=== PATIENT | female | born 1995 | race Caucasian/White ===

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

== ENCOUNTER 2017-07-04 20:11 | Emergency (ER) | payer SELFPAY ==
[2017-07-04 20:11] VITALS: BMI 44.2
[2017-07-04 20:22] VITALS: RESP 18; TEMP 98.2
[2017-07-04] MEDS ORDERED: cefTRIAXone (Rocephin) 250 mg Inj IM STA (20:24)
[2017-07-04 21:00] LABS: URINE BILIRUBIN NEGATIVE (NEGATIVE); URINE BLOOD NEGATIVE (NEGATIVE); URINE GLUCOSE (UA) NEGATIVE (NEGATIVE); URINE LEUKOCYTE ESTERASE NEGATIVE Leu/uL (NEGATIVE); URINE PROTEIN NEGATIVE mg/dL (<30 mg/dL); URINE UROBILINOGEN 0.2 E.U./dL (<1 E.U./dL)
[2017-07-04 21:01] LABS: URINE COLOR YELLOW (YELLOW)
[2017-07-04 21:02] LABS: URINE APPEARANCE CLEAR (CLEAR)
--- NOTE | 2017-07-04 21:35 | ED PDOC ---
Arrival/HPI - General Chief Complaint: Female Genitourinary Time Seen by Provider: 07/04/17 20:23 Historian: Patient - History of Present Illness Narrative History of Present Illness (Text): 07/04/17 21:29 21yo female who present to ED requesting a test for STD. States she had unprotected sex a month ago and had odorous brownish discharge afterwards. Notes that the discharge resolved few days ago. She came to ED today because is worried. Reports suprapubic abdominal pain. Denies dysuria, back pain, urinary frequency, fever, chills, back pain, nasuea, vomiting, any other complaint. Past Medical History - Provider Review Nursing Documentation Reviewed: Yes - Past History Past History: No Previous - Infectious Disease Hx of Infectious Diseases: None - Tetanus Immunization Tetanus Immunization: Unknown - Reproductive Menopause: No - Cardiac Hx Cardiac Disorders: Yes - Pulmonary Hx Respiratory Disorders: No - Neurological Hx Neurological Disorder: Yes (Migraine.) Hx Migraine: Yes - HEENT Hx HEENT Disorder: No - Renal Hx Renal Disorder: No - Endocrine/Metabolic Hx Endocrine Disorders: No - Hematological/Oncological Hx Blood Disorders: No - Integumentary Hx Dermatological Disorder: Yes Hx Eczema: Yes - Musculoskeletal/Rheumatological Hx Musculoskeletal Disorders: No - Gastrointestinal Hx Gastrointestinal Disorders: Yes (Chronic constipation (tried many things without help).) - Genitourinary/Gynecological Hx Genitourinary Disorders: No - Psychiatric Hx Psychophysiologic Disorder: Yes Hx Depression: Yes Hx Emotional Abuse: No Hx Physical Abuse: No Hx Substance Use: No - Past Surgical History Past Surgical History: No Previous - Anesthesia Hx Anesthesia: No - Suicidal Assessment Feels Threatened In Home Enviroment: No Family/Social History - Physician Review Nursing Documentation Reviewed: Yes Family/Social History: Unknown Family HX Smoking Status: Never Smoked Hx Alcohol Use: No Hx Substance Use: No Hx Substance Use Treatment: No Allergies/Home Meds Allergies/Adverse Reactions: Allergies No Known Allergies Allergy (Verified 10/19/16 16:54) Home Medications: Home Meds Medication Instructions Recorded Confirmed No Known Home Med 07/04/17 07/04/17 Review of Systems - Physician Review All systems were reviewed & negative as marked: Yes - Review of Systems Constitutional: Normal Eyes: Normal ENT: Normal Respiratory: Normal Cardiovascular: Normal Gastrointestinal: Normal Genitourinary Female: Vaginal Discharge. absent: Dysuria, Frequency Musculoskeletal: Normal Skin: Normal Neurological: Normal Endocrine: Normal Hemo/Lymphatic: Normal Psychiatric: Normal Physical Exam Vital Signs Reviewed: Yes Vital Signs Temp Pulse Resp BP Pulse Ox 07/04/17 20:18 98.2 F 96 H 18 115/76 99 Temperature: Afebrile Blood Pressure: Normal Pulse: Regular Respiratory Rate: Normal Appearance: Positive for: Well-Appearing, Non-Toxic, Comfortable Pain Distress: None Mental Status: Positive for: Alert and Oriented X 3 - Systems Exam Head: Present: Atraumatic, Normocephalic Pupils: Present: PERRL Extroacular Muscles: Present: EOMI Conjunctiva: Present: Normal Mouth: Present: Moist Mucous Membranes Neck: Present: Normal Range of Motion Respiratory/Chest: Present: Clear to Auscultation, Good Air Exchange. No: Respiratory Distress, Accessory Muscle Use Cardiovascular: Present: Regular Rate and Rhythm, Normal S1, S2. No: Murmurs Abdomen: No: Tenderness, Distention, Peritoneal Signs, Rebound, Guarding, McBurney's Point Tender, Rovsing's Sign Present Back: Present: Normal Inspection. No: CVA Tenderness Upper Extremity: Present: Normal Inspection. No: Cyanosis, Edema Lower Extremity: Present: Normal Inspection. No: Edema Neurological: Present: GCS=15, CN II-XII Intact, Speech Normal Skin: Present: Warm, Dry, Normal Color. No: Rashes Psychiatric: Present: Alert, Oriented x 3, Normal Insight, Normal Concentration Medical Decision Making - Lab Interpretations Lab Results: Lab Results 07/04/17 20:35: Urine Color Yellow, Urine Appearance Clear, Urine pH 8.0, Ur Specific [place] 1.015, Urine Protein Negative, Urine Glucose (UA) Negative, Urine Ketones Negative, Urine Blood Negative, Urine Nitrate Negative, Urine Bilirubin Negative, Urine Urobilinogen 0.2, Ur Leukocyte Esterase Negative - Medication Orders Current Medication Orders: Discontinued Medications Azithromycin (Zithromax) 1,000 mg PO STAT STA PRN Reason: Protocol Stop: 07/04/17 20:25 Ceftriaxone Sodium (Rocephin) 250 mg IM STAT STA PRN Reason: Protocol Stop: 07/04/17 20:25 Disposition/Present on Arrival - Present on Arrival Any Indicators Present on Arrival: No History of DVT/PE: No History of Uncontrolled Diabetes: No Urinary Catheter: No History of Decub. Ulcer: No History Surgical Site Infection Following: None - Disposition Have Diagnosis and Disposition been Completed?: Yes Diagnosis: Venereal disease Disposition: HOME/ ROUTINE Disposition Time: 21:40 Patient Plan: Discharge Condition: STABLE Discharge Instructions (ExitCare): Sexually-Transmitted Diseases, STD Prevention Additional Instructions: Follow up with medical record in 3days for result Return to ED for any new symptoms Referrals: Juan Garza MD [Primary Care Provider] - Follow up with primary
[2017-07-04 23:27] VITALS: BP 112/78; PULSE 85; O2SAT 100
== END 2017-07-04 22:00 | disposition home or self-care (01) ==
LOC: ED 20:11
DX: A64 Unspecified sexually transmitted disease (principal)
CPT/HCPCS: 81003; 87491; 87591; 96372; 99282; J0696

== ENCOUNTER 2017-08-01 15:37 | Emergency (ER) | payer SELFPAY ==
[2017-08-01 16:15] VITALS: BMI 41.1
[2017-08-01 17:08] LABS: PH,URINE 7.5 (4.7-8.0); URINE BILIRUBIN NEGATIVE (NEGATIVE); URINE BLOOD MODERATE (NEGATIVE); URINE GLUCOSE (UA) NEGATIVE (NEGATIVE); URINE LEUKOCYTE ESTERASE LARGE Leu/uL (NEGATIVE); URINE PROTEIN 30 mg/dL (<30 mg/dL); URINE UROBILINOGEN 0.2 E.U./dL (<1 E.U./dL)
[2017-08-01 17:09] LABS: URINE APPEARANCE CLEAR (CLEAR); URINE COLOR LIGHT YELLOW (YELLOW)
[2017-08-01 17:18] LABS: URINE BACTERIA TRACE (NEG); URINE EPITHELIAL CELLS 0 - 2 /hpf (0-5); URINE WBC 20 - 25 /hpf (0-6)
--- NOTE | 2017-08-01 17:27 | ED PDOC ---
Arrival/HPI - General Chief Complaint: Abdominal Pain Time Seen by Provider: 08/01/17 15:49 - History of Present Illness Narrative History of Present Illness (Text): 08/01/17 17:21 Pt is a 21 yo F presents to Emergency department due dysuria and pelvic pain for >1 month. Patient states that initially there was discharge and foul odor in her urine during the first 1-2 weeks of pain. Patients states that pelvic pain is right sided and radiates to her back. Pain is constant. Patient states that she is sexually active with one partner. Patient states that partner does not have any symptoms. Patient denies urinary frequency, fever, chills, nausea, vomiting, abdominal pain, headache, or dizziness. Of note patient was evaluated in the Emergency department about 1 month ago and underwent test which showed negative for gonorrhea and chlamydia and negative UA. (Dipesh Arredondo) Past Medical History - Past History Past History: No Previous - Infectious Disease Hx of Infectious Diseases: None - Tetanus Immunization Tetanus Immunization: Unknown - Reproductive Menopause: No - Cardiac Hx Cardiac Disorders: Yes - Pulmonary Hx Respiratory Disorders: No - Neurological Hx Neurological Disorder: Yes (Migraine.) Hx Migraine: Yes - HEENT Hx HEENT Disorder: No - Renal Hx Renal Disorder: No - Endocrine/Metabolic Hx Endocrine Disorders: No - Hematological/Oncological Hx Blood Disorders: No - Integumentary Hx Dermatological Disorder: Yes Hx Eczema: Yes - Musculoskeletal/Rheumatological Hx Musculoskeletal Disorders: No - Gastrointestinal Hx Gastrointestinal Disorders: Yes (Chronic constipation (tried many things without help).) - Genitourinary/Gynecological Hx Genitourinary Disorders: No - Psychiatric Hx Psychophysiologic Disorder: Yes Hx Depression: Yes Hx Emotional Abuse: No Hx Physical Abuse: No Hx Substance Use: No - Past Surgical History Past Surgical History: No Previous - Anesthesia Hx Anesthesia: No - Suicidal Assessment Feels Threatened In Home Enviroment: No Family/Social History Family/Social History: No Known Family HX Smoking Status: Never Smoked Hx Alcohol Use: No Hx Substance Use: No Hx Substance Use Treatment: No Allergies/Home Meds Allergies/Adverse Reactions: Allergies No Known Allergies Allergy (Verified 08/01/17 16:14) Review of Systems - Physician Review All systems were reviewed & negative as marked: Yes (12 point ROS reviewed and is negative other than what is stated in HPI.) Physical Exam Vital Signs Reviewed: Yes Temperature: Afebrile Blood Pressure: Normal Pulse: Regular Respiratory Rate: Normal Appearance: Positive for: Well-Appearing, Non-Toxic Pain Distress: Moderate Mental Status: Positive for: Alert and Oriented X 3 - Systems Exam Head: Present: Atraumatic, Normocephalic Pupils: Present: PERRL Extroacular Muscles: Present: EOMI Conjunctiva: Present: Normal Mouth: Present: Moist Mucous Membranes Neck: Present: Normal Range of Motion Respiratory/Chest: Present: Clear to Auscultation. No: Wheezes, Rales, Rhonchi Cardiovascular: Present: Regular Rate and Rhythm, Normal S1, S2. No: Murmurs, Rub, Gallop Abdomen: Present: Tenderness (RLQ). No: Distention, Peritoneal Signs, Rebound, Guarding Upper Extremity: Present: Normal Inspection Lower Extremity: Present: Normal Inspection Neurological: Present: GCS=15, CN II-XII Intact, Speech Normal Skin: Present: Warm, Dry, Normal Color. No: Rashes Psychiatric: Present: Alert, Oriented x 3, Normal Insight, Normal Concentration Vital Signs Temp Pulse Resp BP Pulse Ox 08/01/17 21:46 98.8 F 88 18 132/78 97 08/01/17 16:55 98 F 75 19 128/72 99 08/01/17 16:07 98.6 F 89 20 126/77 99 Medical Decision Making ED Course and Treatment: 08/01/17 17:28 21 yo F with right pelvic pain and dysuria. Plan: - Urinalysis - POC - Transvaginal US - Reassess and disposition 08/01/17 19:41 Transvaginal ultrasound reviewed by vrad radiologist shows no acute findings. 08/01/17 21:24 Abdominal/pelvis ultrasound reviewed by ad radiologist IMPRESSION: 1. No definite CT evidence of urolithiasis. 2. Pulmonary nodules. For low-risk patients, no follow-up is necessary. For high -risk patients (smoking history or other known risk factors) an optional CT at 12 months could be performed. Results were discussed with the patient. Patient will be given rx keflex for UTI. Patient was also advised to follow up with [facility] on discharge for routine monitoring due to pulmonary nodules found on CT. (Dipesh Arredondo) 08/01/17 22:22 patient was informed of the incidental CT finding of pulm nodules and was informed to follow up with pulmonary/pcp for further workup/evaluation. abx as per patient request of insurance lapse. patient ok with abx choice and speculated chakraborty. (Gonzalez Farmer) - Lab Interpretations Lab Results: Lab Results 08/01/17 16:25: Urine Color Light yellow, Urine Appearance Clear, Urine pH 7.5, Ur Specific [place] 1.015, Urine Protein 30 H, Urine Glucose (UA) Negative, Urine Ketones Negative, Urine Blood Moderate H, Urine Nitrate Negative, Urine Bilirubin Negative, Urine Urobilinogen 0.2, Ur Leukocyte Esterase Large H, Urine RBC 1 - 3, Urine WBC 20 - 25, Ur Epithelial Cells 0 - 2, Urine Bacteria Trace - RAD Interpretation Radiology Orders: 08/01/17 17:11 TRANSVAGINAL [US] Stat 08/01/17 19:53 ABD & PELVIS W/O PO OR IV CONT [CT] Stat Disposition/Present on Arrival - Present on Arrival Any Indicators Present on Arrival: No History of DVT/PE: No History of Uncontrolled Diabetes: No Urinary Catheter: No History of Decub. Ulcer: No History Surgical Site Infection Following: None - Disposition Have Diagnosis and Disposition been Completed?: Yes Disposition Time: 22:16 Patient Plan: Discharge - Disposition Diagnosis: UTI (urinary tract infection), Pulmonary nodule Disposition: HOME/ ROUTINE Patient Problems: Current Active Problems Problem Status Onset UTI (urinary tract infection) Acute Pulmonary nodule Acute Condition: STABLE Discharge Instructions (ExitCare): Urinary Tract Infection, Adult (DC), Pulmonary Nodule Additional Instructions: 1. Complete 5 day course of antibiotics 2. Follow up with PMD upon completion of antibiotics 3. Follow up with PMD for [facility] referral due to pulmonary nodule findings 3. If symptoms worsen, please return to Emergency department. Including worsening blood in urine, increased pain with urination, discharge, foul odor. BRENDA MCCLELLAN, thank you for letting us take care of you today. Your provider was Gonzalez Farmer MD and you were treated for ABDOMINAL PAIN. The emergency medical care you received today was directed at your acute symptoms. If you were prescribed any medication, please fill it and take as directed. It may take several days for your symptoms to resolve. Return to the Emergency Department if your symptoms worsen, do not improve, or if you have any other problems. Please contact your doctor or call one of the physicians/clinics you have been referred to that are listed on the Patient Visit Information form that is included in your discharge packet. Bring any paperwork you were given at discharge with you along with any medications you are taking to your follow up visit. Our treatment cannot replace ongoing medical care by a primary care provider outside of the emergency department. Thank you for allowing the [facility] team to be part of your care today. Prescriptions: Cephalexin [cephalexin] 500 mg PO QID 5 Days cap Referrals: PCP,NO [Primary Care Provider] - Follow up with primary Dara Tomlin MD [Staff Provider] - Follow up with primary Forms: [employer] (Uzbek)
--- NOTE | 2017-08-01 19:34 | US ---
EXAM: US Pelvis Complete, Transabdominal US Pelvis, Transvaginal US Duplex Arterial/Venous of the Pelvis, Complete CLINICAL HISTORY: 21 years old, female; Pain; Pelvic pain; Additional info: Abdominal pain TECHNIQUE: Real-time transabdominal and transvaginal pelvic ultrasound (complete) with image documentation. Transvaginal imaging was used for better evaluation of the endometrium and adnexa. Real-time duplex ultrasound scan of the arterial and venous flow of the pelvis with color Doppler flow and spectral waveform analysis. COMPARISON: No relevant prior studies available. FINDINGS: Uterus/cervix: Uterus measures 7.6 x 3.8 x 4.1 cm in size. No myometrial mass. Endometrium: 0.7 cm in thickness. Right ovary: 2.6 x 1.9 x 2.8 cm in size. No mass. Small follicles. Normal flow. Left ovary: 2.6 x 2.0 x 2.7 cm in size. No mass. Small follicles. Normal flow. Free fluid: No significant free fluid. Bladder: Unremarkable as visualized. IMPRESSION: 1.No acute findings.
[2017-08-01 21:47] VITALS: RESP 18; TEMP 98.8
--- NOTE | 2017-08-01 22:02 | CT ---
EXAM: CT Abdomen and Pelvis Without Intravenous Contrast CLINICAL HISTORY: 21 years old, female; Pain; Abdominal pain; Additional info: R/O stones TECHNIQUE: Axial computed tomography images of the abdomen and pelvis without intravenous contrast. All CT scans at this facility use one or more dose reduction techniques, viz.: automated exposure control; ma/kV adjustment per patient size (including targeted exams where dose is matched to indication; i.e. head); or iterative reconstruction technique. Coronal and sagittal reformatted images were created and reviewed. COMPARISON: US - TRANSVAGINAL 2017-08-01 18:41 FINDINGS: Limitations: Lack of intravenous contrast. Lung bases: Few pulmonary nodules, up to 0.3 cm. ABDOMEN: Liver: Unremarkable. Gallbladder and bile ducts: No calcified stones. No ductal dilation. Pancreas: Unremarkable. No ductal dilation. Spleen: No splenomegaly. Adrenals: No mass. Kidneys and ureters: No renal calculi. No hydronephrosis. Stomach and bowel: No definite mural thickening. No obstruction. PELVIS: Appendix: Normal caliber. No inflammation. Bladder: Unremarkable. No stones. Reproductive: Unremarkable as visualized. ABDOMEN and PELVIS: Intraperitoneal space: No significant fluid collection. No free air. Bones/joints: No acute fracture. Soft tissues: Unremarkable. Vasculature: Unremarkable. No aneurysm. Lymph nodes: Several subcentimeter short axis mesenteric lymph nodes. IMPRESSION: 1. No definite CT evidence of urolithiasis. 2. Pulmonary nodules. For low-risk patients, no follow-up is necessary. For high-risk patients (smoking history or other known risk factors) an optional CT at 12 months could be performed.
[2017-08-01 22:32] VITALS: BP 129/82; PULSE 85; O2SAT 100
== END 2017-08-01 22:32 | disposition home or self-care (01) ==
LOC: ED 15:37
DX: N39.0 Urinary tract infection, site not specified (principal); R91.8 Other nonspecific abnormal finding of lung field